=== PATIENT | male | born 2000 | race Hispanic/Latino ===

== ENCOUNTER 2020-11-26 20:54 | Emergency (ER) | payer MEDICAID, OTHER ==
[~2020-11-26] VITALS: Ht 152.4 cm; Wt 59.0 kg
[2020-11-26 20:56] VITALS: BP 123/63
[2020-11-26 20:57] VITALS: BP 123/63
[2020-11-26] MEDS ORDERED: PANT40TA54 PO (21:19)
[2020-11-26] MEDS ORDERED: ONDA4TAB4 PO (21:19)
[2020-11-26] MEDS ORDERED: SULF1TAB42 PO (21:19)
[2020-11-26] MEDS ORDERED: ONDANSETRON 4MG INJ ONE (21:24)
[2020-11-26] MEDS ORDERED: ACETAMINOPHEN 325 MG TAB PO ONE (21:30)
[2020-11-26] MEDS ORDERED: 0.9%NACL 1000ML 1,000 ML IV ONE (21:30)
[2020-11-26] MEDS ORDERED: PANTOPRAZOLE 40 MG/VIAL IVP ONE (21:30)
[2020-11-26] MEDS ORDERED: ONDANSETRON 4MG INJ IVP ONE (21:30)
== END 2020-11-26 21:38 | disposition home or self-care (01) ==
LOC: EDH 20:54
DX: K52.9 Noninfective gastroenteritis and colitis, unspecified (principal); Z79.899 Other long term (current) drug therapy
CPT/HCPCS: 96374; 99283; J2405